=== PATIENT | male | born 1940 | race Caucasian/White ===

== ENCOUNTER 2020-06-22 14:00 | Outpatient (CLI) | payer MEDICARE, OTHER ==
--- NOTE | 2020-06-22 14:16 | RAD ---
XR Chest Pa Lat STANDARD HISTORY: Dyspnea COMPARISON: 04/27/2008 FINDINGS: The heart size is normal. Changes of COPD are again seen. The aorta is tortuous. The lungs are well expanded without focal areas of consolidation, pneumothorax or pleural effusions. There are degenerative changes in the spine. IMPRESSION: No radiographic evidence of acute cardiopulmonary process.
== END 2020-06-22 14:01 | disposition home or self-care (01) ==
LOC: BICRAD 14:00
PROVIDERS: ATTEND Internal Medicine Pulmonary Disease
DX: R06.00 Dyspnea, unspecified (principal)
CPT/HCPCS: 71046